=== PATIENT | male | born 1970 | race Caucasian/White ===

== ENCOUNTER 2021-03-08 13:13 | Emergency (ER) | payer BC ==
[~2021-03-08] VITALS: Ht 182.9 cm; Wt 75.0 kg
[2021-03-08 13:50] VITALS: BP 117/90; Ht 182.9 cm; Wt 75.0 kg
[2021-03-08] MEDS ORDERED: KLONOPIN1 MG PO (13:53)
[2021-03-08] MEDS ORDERED: REMERON30 MG PO (13:53)
[2021-03-08] MEDS ORDERED: BUPRENORPHIN-N1 EACH SL (13:53)
== END 2021-03-08 16:10 | disposition home or self-care (01) ==
LOC: D.ER 13:13
DX: R11.2 Nausea with vomiting, unspecified (principal); T50.B95A Adverse effect of other viral vaccines, initial encounter; R10.9 Unspecified abdominal pain

== ENCOUNTER 2021-03-20 02:07 | Emergency (ER) | payer BC ==
[~2021-03-20] VITALS: Ht 182.9 cm; Wt 75.0 kg
[~2021-03-20 02:07] MED LIST: BUPRENORPHIN-N1 EACH SL; KLONOPIN1 MG PO; REMERON30 MG PO
[2021-03-20 02:10] VITALS: BP 131/87; Ht 182.9 cm; Wt 75.0 kg
[2021-03-20] MEDS ORDERED: CHANTIX 1 MG TAB1 MG PO (02:13)
[2021-03-20] MEDS ORDERED: TORADOL10 MG PO (02:33)
== END 2021-03-20 03:02 | disposition home or self-care (01) ==
LOC: D.ER 02:07
DX: S40.021A Contusion of right upper arm, initial encounter (principal); M25.511 Pain in right shoulder; W22.8XXA Striking against or struck by other objects, initial encounter; Y93.55 Activity, bike riding; Y92.9 Unspecified place or not applicable